=== PATIENT | female | born 1975 | race Caucasian/White ===

== ENCOUNTER → 2017-10-18 | Outpatient (CLI) | payer MEDICAID | LOC: FIMAGING 15:50 | PROVIDERS: ATTEND Internal Medicine | DX: E04.1 Nontoxic single thyroid nodule (principal); G89.29 Other chronic pain; M25.531 Pain in right wrist; S63.641S Sprain of metacarpophalangeal joint of right thumb, sequela; S69.91XS Unspecified injury of right wrist, hand and finger(s), sequela ==

== ENCOUNTER → 2017-10-25 | Outpatient (CLI) | payer MEDICAID ==
[~2017-10-25] MED LIST: LIDOCAINE 1% 300 MG/30 ML SDV ONE
== END ==
LOC: FIMAGING 08:26
PROVIDERS: ATTEND Internal Medicine
PROC: 0G9H3ZZ Drainage of Right Thyroid Gland Lobe, Percutaneous Approach (ICD-10-PCS; principal; 2017-10-25)
DX: E04.2 Nontoxic multinodular goiter (principal); G89.29 Other chronic pain; M25.531 Pain in right wrist; S63.641S Sprain of metacarpophalangeal joint of right thumb, sequela; S69.91XS Unspecified injury of right wrist, hand and finger(s), sequela